=== PATIENT | female | born 1940 | race Caucasian/White ===

== ENCOUNTER 2016-07-15 17:17 | Emergency (ER) | payer OTHER ==
[~2016-07-15] VITALS: Ht 157.5 cm; Wt 64.1 kg
[~2016-07-15 17:17] MED LIST: ARNUITY ELLIP100 MCG IH; Ascorbic Acid,Ester- PO; Benadryl PO; CALTRATE 600600 MG PO; CELECOXIB200 MG PO; Coumadin,Jantoven PO; DIOVAN40 MG PO; DIOVAN80 MG PO; Dulcolax PR; EFFEXOR XR150 MG PO; EFFEXOR25 MG PO; Effexor PO; FLEXERIL10 MG PO; FLOMAX0.4 MG PO; Feosol PO; Folvite PO; GLUCAGEN1 MG IM/SC; GLUCOPHAGE XR750 MG PO; Glucophage PO; HYDROCODON-ACE1 EAC7 PO; INSULIN PUMP SCCONT; LIDODERM 5% P1 PATCH TP; LORTAB 5-325 M1 EACH PO; LOZOL1.25 MG PO; Maalox, Mylanta PO; NOLVADEX20 MG PO; NOVOLOG; NOVOLOG 10100 UNITS/ IV; OXAYDO5 MG PO; PAXIL10 MG PO; PEPCID20 MG PO; PEPCID40 MG PO; PRAVACHOL20 MG PO; PRAVASTATIN SOD10 MG PO; Paxil PO; Pepcid PO; Proventil,Ventolin H IH; SYNTHROID50 MCG PO; Senokot S,Pericolace PO; THERAGRAN1 TABLET PO; Tylenol Regular Stre PO; VENTOLIN HFA18 GM IH; Vicodin,Norco 5/325 PO; XARELTO10 MG PO; Zocor PO
[2016-07-15 18:46] LABS: CARBON DIOXIDE (BICARBONATE) 28.4 MEQ/L (20-31); MCH 30.4 PG (29.0-34.0); MCV 89.5 FL (83-99); MEAN PLAT.VOLUME 10.8 uM^3 (9.5-12.4); PLATELET COUNT 258 K/uL (156-360); RBC DIS.WIDTH-CV 12.7 % (11.8-14.6); RBC DIS.WIDTH-SD 42.1 % (39-53); RED BLOOD COUNT 4.47 M/uL (3.80-5.20); WHITE BLOOD COUNT 7.8 K/uL (4.1-10.2)
[2016-07-15 18:48] LABS: CHLORIDE 95 mEq/L (99-109); POTASSIUM 4.5 mEq/L (3.7-5.4); SODIUM 132 mEq/L (136-147)
[2016-07-15 18:51] LABS: ANION GAP 13 MEQ/L (2-14)
[2016-07-15 18:52] LABS: GLUCOSE 533 mg/dL (70-99)
[2016-07-15 18:54] LABS: GFR ESTIMATE (CALCULATED) 42 mL/min/
[2016-07-15 18:55] LABS: UREA NITROGEN (BUN) 18 mg/dL (9-23)
[2016-07-15 21:05] VITALS: BP 165/79
[2016-07-15 21:12] LABS: POINT-OF-CARE METER ID UU13113702
[2016-07-18 12:06] LABS: POINT-OF-CARE METER ID UU13113778
[2016-07-18 12:06] LABS: POINT-OF-CARE METER ID UU13113702
== END 2016-07-15 21:12 | disposition home or self-care (01) ==
LOC: EME 17:17
PROVIDERS: Emergency Medicine
DX: E11.65 Type 2 diabetes mellitus with hyperglycemia (principal); Z79.84 Long term (current) use of oral hypoglycemic drugs; Z79.4 Long term (current) use of insulin; Z96.41 Presence of insulin pump (external) (internal); Z87.891 Personal history of nicotine dependence; Z91.040 Latex allergy status; Z88.1 Allergy status to other antibiotic agents; Z88.8 Allergy status to other drugs, medicaments and biological substances; Z88.0 Allergy status to penicillin; Z88.5 Allergy status to narcotic agent; Z85.3 Personal history of malignant neoplasm of breast; Z90.10 Acquired absence of unspecified breast and nipple; J44.9 Chronic obstructive pulmonary disease, unspecified; I10 Essential (primary) hypertension
CPT/HCPCS: 80048; 81003; 82803; 82948; 85027; 99281; 99285; J7030

== ENCOUNTER 2016-07-29 15:12 | Inpatient (IN) | payer OTHER ==
[~2016-07-29] VITALS: Ht 157.5 cm; Wt 59.5 kg
[2016-07-29 16:21] LABS: CARBON DIOXIDE (BICARBONATE) 11.5 MEQ/L (20-31)
[2016-07-29 16:25] LABS: MCH 30.4 PG (29.0-34.0); MCHC 32.7 G/DL (30.0-36.0); MCV 93.2 FL (83-99); MEAN PLAT.VOLUME 10.6 uM^3 (9.5-12.4); PLATELET COUNT 291 K/uL (156-360); RBC DIS.WIDTH-CV 12.9 % (11.8-14.6); RBC DIS.WIDTH-SD 44.2 % (39-53); RED BLOOD COUNT 4.83 M/uL (3.80-5.20); WHITE BLOOD COUNT 12.3 K/uL (4.1-10.2)
[2016-07-29 16:27] LABS: CHLORIDE 94 mEq/L (99-109); SODIUM 127 mEq/L (136-147)
[2016-07-29 16:31] LABS: ANION GAP 23 MEQ/L (2-14); TOTAL BILIRUBIN 0.5 mg/dL (0.0-1.0)
[2016-07-29 16:32] LABS: GLUCOSE 796 mg/dL (70-99); POTASSIUM 6.5 mEq/L (3.7-5.4)
[2016-07-29 16:33] LABS: ALKALINE PHOSPHATASE 91 IU/L (3-129); GFR ESTIMATE (CALCULATED) 21 mL/min/
[2016-07-29 16:35] LABS: UREA NITROGEN (BUN) 41 mg/dL (9-23)
[2016-07-29 16:40] LABS: TROP-I INTERPRETATION NEGATIVE; TROPONIN-I < 0.01 ng/mL (0.0-0.30)
[2016-07-29 17:26] LABS: ADD MIUA? NO; BILIRUBIN NEGATIVE; BLOOD NEGATIVE; COLOR STRAW ((YELLOW)); GLUCOSE (STRIP) >=500; KETONES 80; LEUKOCYTES NEGATIVE; NITRITE NEGATIVE; PROTEIN (STRIP) 30; SPECIFIC GRAVITY 1.018 (1.000-1.030); UCUL ADDED? NO; UROBILINOGEN 0.2 MG/DL (0.2-1.0)
[2016-07-29 18:43] LABS: SODIUM 132 mEq/L (136-147)
[2016-07-29 18:44] LABS: CHLORIDE 104 mEq/L (99-109)
[2016-07-29 18:46] LABS: ANION GAP 17 MEQ/L (2-14)
[2016-07-29 18:50] LABS: UREA NITROGEN (BUN) 38 mg/dL (9-23)
[2016-07-29 18:57] LABS: GFR ESTIMATE (CALCULATED) 27 mL/min/
[2016-07-29 19:10] LABS: GLUCOSE 552 mg/dL (70-99)
[2016-07-29] MEDS ORDERED: LEVOTHYROXINE112 MCG PO (19:11)
[2016-07-29 20:30] LABS: CHLORIDE 106 mEq/L (99-109); POTASSIUM 4.6 mEq/L (3.7-5.4); SODIUM 134 mEq/L (136-147)
[2016-07-29 20:33] LABS: ANION GAP 16 MEQ/L (2-14)
[2016-07-29 20:36] LABS: GFR ESTIMATE (CALCULATED) 29 mL/min/; UREA NITROGEN (BUN) 33 mg/dL (9-23)
[2016-07-29 20:45] LABS: GLUCOSE 500 mg/dL (70-99)
[2016-07-29 21:31] LABS: POINT-OF-CARE METER ID UU14100415
[2016-07-29 22:36] LABS: POINT-OF-CARE METER ID UU14100415
[2016-07-29 22:48] VITALS: BP 148/52
[2016-07-29 23:12] VITALS: BP 148/52
[2016-07-29 23:37] LABS: POINT-OF-CARE METER ID UU13113748
[2016-07-30] VITALS (16 sets, daily range): BP systolic 119–171; BP diastolic 50–77
[2016-07-30 00:05] LABS: METH RESISTANT S AUREUS PCR NEGATIVE (NEGATIVE)
[2016-07-30 00:13] LABS: PROBE CHECK PASS; SPECIMEN PROCESSING CONTROL PASS
[2016-07-30 00:41] LABS: POINT-OF-CARE METER ID UU13113748
[2016-07-30 00:53] LABS: CHLORIDE 110 mEq/L (99-109); POTASSIUM 3.9 mEq/L (3.7-5.4); SODIUM 137 mEq/L (136-147)
[2016-07-30 00:55] LABS: GLUCOSE 248 mg/dL (70-99)
[2016-07-30 00:56] LABS: ANION GAP 9 MEQ/L (2-14)
[2016-07-30 00:58] LABS: GFR ESTIMATE (CALCULATED) 39 mL/min/
[2016-07-30 00:59] LABS: UREA NITROGEN (BUN) 34 mg/dL (9-23)
[2016-07-30 01:43] LABS: POINT-OF-CARE METER ID UU13113731
[2016-07-30 03:43] LABS: POINT-OF-CARE METER ID UU13113731
[2016-07-30 06:28] LABS: CHLORIDE 109 MEQ/L (99-109); GFR ESTIMATE (CALCULATED) 51 mL/min/; GLUCOSE 128 mg/dL (70-99); POTASSIUM 4.5 MEQ/L (3.7-5.4); SODIUM 137 MEQ/L (136-147); UREA NITROGEN (BUN) 28 mg/dL (9-23)
[2016-07-30 06:29] LABS: ANION GAP 8 MEQ/L (2-14)
[2016-07-30 07:43] LABS: SAMPLE HEMOLYSIS CHECK 0; SAMPLE ICTERIC CHECK 0; SAMPLE LIPEMIA CHECK 0
[2016-07-30 08:55] LABS: ANION GAP 7 MEQ/L (2-14); CHLORIDE 110 MEQ/L (99-109); GFR ESTIMATE (CALCULATED) 51 mL/min/; GLUCOSE 172 mg/dL (70-99); POTASSIUM 4.1 MEQ/L (3.7-5.4); SAMPLE HEMOLYSIS CHECK 0; SAMPLE ICTERIC CHECK 0; SAMPLE LIPEMIA CHECK 0; SODIUM 137 MEQ/L (136-147); UREA NITROGEN (BUN) 26 mg/dL (9-23)
[2016-07-30 13:09] LABS: ANION GAP 9 MEQ/L (2-14); CHLORIDE 111 MEQ/L (99-109); GFR ESTIMATE (CALCULATED) > 59 mL/min/; GLUCOSE 190 mg/dL (70-99); POTASSIUM 4.7 MEQ/L (3.7-5.4); SAMPLE HEMOLYSIS CHECK 0; SAMPLE ICTERIC CHECK 0; SAMPLE LIPEMIA CHECK 0; SODIUM 135 MEQ/L (136-147); UREA NITROGEN (BUN) 20 mg/dL (9-23)
[2016-07-30 16:36] LABS: ANION GAP 6 MEQ/L (2-14); CHLORIDE 111 MEQ/L (99-109); POTASSIUM 4.8 MEQ/L (3.7-5.4); SAMPLE HEMOLYSIS CHECK 0; SAMPLE ICTERIC CHECK 0; SAMPLE LIPEMIA CHECK 0; SODIUM 136 MEQ/L (136-147)
[2016-07-30 16:41] LABS: GFR ESTIMATE (CALCULATED) > 59 mL/min/; GLUCOSE 175 mg/dL (70-99); UREA NITROGEN (BUN) 17 mg/dL (9-23)
[2016-07-30 17:59] LABS: POINT-OF-CARE METER ID UU13113731
[2016-07-31 00:14] VITALS: BP 125/75
[2016-07-31 04:41] VITALS: BP 133/67
[2016-07-31 06:54] LABS: HEMATOCRIT 35.8 % (36.0-46.0); MCH 30.5 PG (29.0-34.0); MCHC 33.5 G/DL (30.0-36.0); MCV 90.9 FL (83-99); RBC DIS.WIDTH-CV 13.2 % (11.8-14.6); RBC DIS.WIDTH-SD 44.3 % (39-53); RED BLOOD COUNT 3.94 M/uL (3.80-5.20); WHITE BLOOD COUNT 6.6 K/uL (4.1-10.2)
[2016-07-31 07:07] LABS: ANION GAP 8 MEQ/L (2-14); CHLORIDE 108 MEQ/L (99-109); GFR ESTIMATE (CALCULATED) > 59 mL/min/; GLUCOSE 163 mg/dL (70-99); MAGNESIUM 1.6 mg/dl (1.3-2.7); POTASSIUM 5.4 MEQ/L (3.7-5.4); SAMPLE HEMOLYSIS CHECK 0; SAMPLE ICTERIC CHECK 0; SAMPLE LIPEMIA CHECK 0; SODIUM 138 MEQ/L (136-147); UREA NITROGEN (BUN) 10 mg/dL (9-23)
[2016-07-31 07:09] LABS: MEAN PLAT.VOLUME 10.7 uM^3 (9.5-12.4); PLAT.SUFFICIENCY ADEQUATE
[2016-07-31 07:15] VITALS: BP 154/74
[2016-07-31 07:28] LABS: PLATELET COUNT 196 K/uL (156-360)
[2016-07-31 10:50] VITALS: BP 141/67
[2016-07-31 10:54] LABS: POINT-OF-CARE METER ID UU14149397
[2016-07-31 18:08] LABS: POINT-OF-CARE METER ID UU14188577
[2016-07-31 21:59] LABS: POINT-OF-CARE METER ID UU14100415
[2016-07-31 21:59] LABS: POINT-OF-CARE METER ID UU14100415
[2016-07-31 21:59] LABS: POINT-OF-CARE METER ID UU14100415
[2016-07-31 22:07] LABS: POINT-OF-CARE METER ID UU14188577
[2016-07-31] MEDS ORDERED: LUMIGAN 0.50 DROP/22 LEFT EYE (22:41)
[2016-08-01 00:24] VITALS: BP 118/72
[2016-08-01 02:22] LABS: POINT-OF-CARE METER ID UU14149397
[2016-08-01 03:16] LABS: POINT-OF-CARE METER ID UU14188577
[2016-08-01 06:09] LABS: POINT-OF-CARE METER ID UU14188577
[2016-08-01 06:34] LABS: POINT-OF-CARE METER ID UU14188577
[2016-08-01 08:27] VITALS: BP 165/71
[2016-08-01 10:03] LABS: POINT-OF-CARE METER ID UU14188577
[2016-08-01 10:55] LABS: POINT-OF-CARE METER ID UU14149397
[2016-08-01 11:33] LABS: POINT-OF-CARE METER ID UU14149397
== END 2016-08-01 13:02 | disposition home or self-care (01) | DRG 638 ==
LOC: EME 15:12 → 3EAST 20:53 → EDOF 20:53 → 4WEST 20:53 → 3EAST 07-30 18:08
PROVIDERS: Emergency Medicine; Internal Medicine; Internal Medicine Critical Care Medicine; Internal Medicine Pulmonary Disease; Student in an Organized Health Care Education/Training Program
DX: E10.10 Type 1 diabetes mellitus with ketoacidosis without coma (principal); N17.9 Acute kidney failure, unspecified; J44.9 Chronic obstructive pulmonary disease, unspecified; E83.39 Other disorders of phosphorus metabolism; E87.5 Hyperkalemia; Z96.641 Presence of right artificial hip joint; D72.829 Elevated white blood cell count, unspecified; E78.00 Pure hypercholesterolemia, unspecified; I10 Essential (primary) hypertension; F32.9 Major depressive disorder, single episode, unspecified; Z96.41 Presence of insulin pump (external) (internal); R63.1 Polydipsia; Z79.4 Long term (current) use of insulin; Z87.891 Personal history of nicotine dependence; Z85.3 Personal history of malignant neoplasm of breast; Z83.3 Family history of diabetes mellitus; Z88.0 Allergy status to penicillin; Z91.040 Latex allergy status; Z88.6 Allergy status to analgesic agent
CPT/HCPCS: 36415; 71010; 80048; 80048 91; 80053; 81003; 82010; 82803; 82948; 83036; 83735; 84100; 84484; 85027; 87641; 93005; 99281; 99285; J1815; J7030; J7050

== ENCOUNTER 2016-11-21 00:36 | Observation (INO) | payer OTHER ==
[~2016-11-21] VITALS: Ht 157.5 cm; Wt 64.0 kg
[2016-11-21] VITALS (7 sets, daily range): BP systolic 128–182; BP diastolic 57–90
[~2016-11-21 00:36] MED LIST changes: +LEVOTHYROXINE112 MCG PO; +LUMIGAN 0.50 DROP/22 LEFT EYE
[2016-11-21 01:14] LABS: HEMATOCRIT 39.6 % (36.0-46.0); MCH 30.5 PG (29.0-34.0); MCHC 34.3 G/DL (30.0-36.0); MCV 88.8 FL (83-99); MEAN PLAT.VOLUME 10.7 uM^3 (9.5-12.4); PLATELET COUNT 242 K/uL (156-360); RBC DIS.WIDTH-CV 12.7 % (11.8-14.6); RBC DIS.WIDTH-SD 41.5 % (39-53); RED BLOOD COUNT 4.46 M/uL (3.80-5.20); WHITE BLOOD COUNT 7.4 K/uL (4.1-10.2)
[2016-11-21 01:20] LABS: CARBON DIOXIDE (BICARBONATE) 29.9 MEQ/L (20-31)
[2016-11-21 01:22] LABS: CHLORIDE 95 mEq/L (99-109); POTASSIUM 4.3 mEq/L (3.7-5.4); SODIUM 131 mEq/L (136-147)
[2016-11-21 01:26] LABS: ANION GAP 13 MEQ/L (2-14); TOTAL BILIRUBIN 0.4 mg/dL (0.0-1.0)
[2016-11-21 01:28] LABS: ALKALINE PHOSPHATASE 100 IU/L (3-129); GFR ESTIMATE (CALCULATED) 39 mL/min/
[2016-11-21 01:29] LABS: UREA NITROGEN (BUN) 13 mg/dL (9-23)
[2016-11-21 01:30] LABS: DIRECT BILIRUBIN 0.2 mg/dL (0.0-0.3)
[2016-11-21 01:32] LABS: LIPASE 11 U/L (1.0-51.0)
[2016-11-21 01:45] LABS: GLUCOSE 746 mg/dL (70-99)
[2016-11-21 03:14] LABS: ADD MIUA? NO; BILIRUBIN NEGATIVE; BLOOD NEGATIVE; COLOR STRAW ((YELLOW)); GLUCOSE (STRIP) >=500; KETONES NEGATIVE; LEUKOCYTES NEGATIVE; NITRITE NEGATIVE; PROTEIN (STRIP) NEGATIVE; SPECIFIC GRAVITY 1.023 (1.000-1.030); UCUL ADDED? NO; UROBILINOGEN 0.2 MG/DL (0.2-1.0)
[2016-11-21 03:21] LABS: SAMPLE HEMOLYSIS CHECK 0; SAMPLE ICTERIC CHECK 0; SAMPLE LIPEMIA CHECK 0
[2016-11-21 03:23] LABS: AMPHETAMINE NEGATIVE (500 ng/mL); BARBITURATES NEGATIVE (200 ng/mL); BENZODIAZEPINES NEGATIVE (150 ng/mL); COCAINE NEGATIVE (150 ng/mL); INTERNAL CONTROLS VALID? YES; METHADONE NEGATIVE (200 ng/mL); METHAMPHETAMINE NEGATIVE (500 ng/mL); OPIATES (MORPHINE) NEGATIVE (100 ng/mL); OXYCODONE NEGATIVE (100 ng/mL); PHENCYCLIDINE NEGATIVE (25 ng/mL); PROPOXYPHENE NEGATIVE (300 ng/mL); THC CANNABINOIDS NEGATIVE (50 ng/mL); TRICYCLIC ANTIDEPRESSANTS NEGATIVE (300 ng/mL)
[2016-11-21 04:49] LABS: TROP-I INTERPRETATION NEGATIVE; TROPONIN-I < 0.01 ng/mL (0.0-0.30)
[2016-11-21 05:22] LABS: POINT-OF-CARE METER ID UU13113725
[2016-11-21 06:20] LABS: ANION GAP 5 MEQ/L (2-14); CHLORIDE 101 MEQ/L (99-109); GFR ESTIMATE (CALCULATED) > 59 mL/min/; GLUCOSE 400 mg/dL (70-99); POTASSIUM 3.8 MEQ/L (3.7-5.4); SAMPLE HEMOLYSIS CHECK 0; SAMPLE ICTERIC CHECK 0; SAMPLE LIPEMIA CHECK 0; SODIUM 135 MEQ/L (136-147); UREA NITROGEN (BUN) 11 mg/dL (9-23)
[2016-11-21 08:41] LABS: Estimated Average Glucose 229 mg/dL (70-123); HEMOGLOBIN A1c (GLYCOHEMOGLOB) 9.6 % HGB (Below 5.7)
[2016-11-21 11:49] LABS: POINT-OF-CARE METER ID UU13113725
[2016-11-21] MEDS ORDERED: PAXIL10 MG PO (12:47)
[2016-11-21 16:19] LABS: POINT-OF-CARE METER ID UU13113725
[2016-11-21 21:38] LABS: POINT-OF-CARE METER ID UU13113725
[2016-11-21 23:22] LABS: POINT-OF-CARE METER ID UU13113725
[2016-11-22 01:20] VITALS: BP 177/75
[2016-11-22 03:09] VITALS: BP 170/74
[2016-11-22 05:21] VITALS: BP 154/70
[2016-11-22 06:01] LABS: POINT-OF-CARE METER ID UU13113774
[2016-11-22 06:35] LABS: EOSINOPHIL (%) 0.1 % (0-5); HEMATOCRIT 39.8 % (36.0-46.0); IMMATURE GRANULOCYTE (%) 0.3 % (0.0-0.7); INSTRUMENT ABS NEUTROPHIL CT 7.8 K/uL; LYMPHOCYTE COUNT 1.8 K/uL (1.0-2.8); MCH 29.8 PG (29.0-34.0); MCHC 33.2 G/DL (30.0-36.0); MCV 89.8 FL (83-99); MEAN PLAT.VOLUME 10.9 uM^3 (9.5-12.4); MONOCYTE (%) 5.8 % (3-12); MONOCYTE COUNT 0.6 K/uL (0-0.8); NEUTROPHIL (%) 76.2 % (45-76); NEUTROPHIL COUNT 7.8 K/uL (1.8-6.4); PLATELET COUNT 268 K/uL (156-360); RBC DIS.WIDTH-CV 12.8 % (11.8-14.6); RBC DIS.WIDTH-SD 42.3 % (39-53); RED BLOOD COUNT 4.43 M/uL (3.80-5.20); WHITE BLOOD COUNT 10.2 K/uL (4.1-10.2)
[2016-11-22 07:02] LABS: ALKALINE PHOSPHATASE 80 IU/L (3-129); ANION GAP 9 MEQ/L (2-14); CHLORIDE 104 MEQ/L (99-109); GFR ESTIMATE (CALCULATED) > 59 mL/min/; POTASSIUM 4.3 MEQ/L (3.7-5.4); SAMPLE HEMOLYSIS CHECK 0; SAMPLE ICTERIC CHECK 0; SAMPLE LIPEMIA CHECK 0; SODIUM 141 MEQ/L (136-147); TOTAL BILIRUBIN 0.4 MG/DL (0.0-1.0); UREA NITROGEN (BUN) 11 mg/dL (9-23)
[2016-11-22 07:08] LABS: GLUCOSE 64 mg/dL (70-99)
[2016-11-22 07:40] VITALS: BP 137/70
[2016-11-22 11:14] LABS: POINT-OF-CARE METER ID UU13113725
[2016-11-22 11:51] VITALS: BP 150/70
[2016-11-22] MEDS ORDERED: NOVOLOG PE100 UNITS/ SC (13:41)
[2016-11-22] MEDS ORDERED: LEVEMIR FL100 UNIT/1 SC (13:41)
[2016-11-22 16:01] VITALS: BP 100/60
[2016-11-22] MEDS ORDERED: LEVEMIR100 UNIT/2 SC (16:28)
[2016-11-22 16:57] LABS: POINT-OF-CARE METER ID UU13113774
== END 2016-11-22 16:57 | disposition home or self-care (01) ==
LOC: EME 00:36 → EDOF 03:32 → 5EAST 03:32 → EDOF 03:32 → ENRESERV 03:46 → CANRESERV 03:46 → ENRESERV 03:59 → 5EAST 04:43
PROVIDERS: Emergency Medicine; Hospitalist
DX: E10.65 Type 1 diabetes mellitus with hyperglycemia (principal); T85.694A Other mechanical complication of insulin pump, initial encounter; Y74.2 Prosthetic and other implants, materials and accessory general hospital and personal-use devices associated with adverse incidents; Z96.41 Presence of insulin pump (external) (internal); Z91.14 Patient's other noncompliance with medication regimen; N17.9 Acute kidney failure, unspecified; E86.0 Dehydration; J44.1 Chronic obstructive pulmonary disease with (acute) exacerbation; Z85.3 Personal history of malignant neoplasm of breast; Z92.21 Personal history of antineoplastic chemotherapy; Z92.3 Personal history of irradiation; E10.51 Type 1 diabetes mellitus with diabetic peripheral angiopathy without gangrene; K44.9 Diaphragmatic hernia without obstruction or gangrene; I10 Essential (primary) hypertension; Z87.11 Personal history of peptic ulcer disease; E78.5 Hyperlipidemia, unspecified; Z90.49 Acquired absence of other specified parts of digestive tract; Z90.710 Acquired absence of both cervix and uterus; F17.210 Nicotine dependence, cigarettes, uncomplicated; Z96.641 Presence of right artificial hip joint; Z96.651 Presence of right artificial knee joint; Z80.0 Family history of malignant neoplasm of digestive organs; Z83.3 Family history of diabetes mellitus; Z82.49 Family history of ischemic heart disease and other diseases of the circulatory system; Z80.3 Family history of malignant neoplasm of breast; Z88.0 Allergy status to penicillin; Z88.1 Allergy status to other antibiotic agents; Z88.8 Allergy status to other drugs, medicaments and biological substances; Z88.5 Allergy status to narcotic agent; Z79.4 Long term (current) use of insulin
CPT/HCPCS: 71010; 80048 91; 80053; 81003; 82010; 82248; 82803; 82948; 83036; 83605; 83690; 84484; 85025; 85027; 87040; 87086; 93005; 94640; 94640 76; 99202; 99281; 99285; G0378; G8978 GP CH; G8979 GP CH; G8980 GP CH; G8987 GO CH; G8988 GO CH; G8989 GO CH; J0360; J1644; J1815; J7030

== ENCOUNTER 2017-03-10 00:20 | Emergency (ER) | payer OTHER ==
[~2017-03-10] VITALS: Ht 157.5 cm; Wt 61.4 kg
[~2017-03-10 00:20] MED LIST changes: +LEVEMIR FL100 UNIT/1 SC; +LEVEMIR100 UNIT/2 SC; +NOVOLOG PE100 UNITS/ SC
[2017-03-10] MEDS ORDERED: NORCO 5/3251 TABLET PO (04:24)
[2017-03-10 04:29] VITALS: BP 157/93
== END 2017-03-10 04:43 | disposition home or self-care (01) ==
LOC: EME 00:20
PROC: 2W3RX1Z Immobilization of Left Lower Leg using Splint (ICD-10-PCS; principal; 2017-03-10)
DX: S93.402A Sprain of unspecified ligament of left ankle, initial encounter (principal); E11.9 Type 2 diabetes mellitus without complications; F17.200 Nicotine dependence, unspecified, uncomplicated; W01.0XXA Fall on same level from slipping, tripping and stumbling without subsequent striking against object, initial encounter; Z88.1 Allergy status to other antibiotic agents; Z88.5 Allergy status to narcotic agent; Z88.0 Allergy status to penicillin; Z88.8 Allergy status to other drugs, medicaments and biological substances
CPT/HCPCS: 73610; 99281; 99284

== ENCOUNTER 2017-03-23 18:21 | Emergency (ER) | payer OTHER ==
[~2017-03-23] VITALS: Ht 157.5 cm; Wt 58.8 kg
[~2017-03-23 18:21] MED LIST changes: +DIOVAN160 MG PO; -DIOVAN80 MG PO; -LEVOTHYROXINE112 MCG PO; +NORCO 5/3251 TABLET PO; +SYNTHROID125 MCG PO
[2017-03-23 19:00] LABS: BASOPHIL (%) 0.3 % (0-1); EOSINOPHIL (%) 0 % (0-5); HEMATOCRIT 43.2 % (36.0-46.0); HEMOGLOBIN 14.2 G/DL (11.9-15.5); IMMATURE GRANULOCYTE (%) 0.6 % (0.0-0.7); LYMPHOCYTE (%) 8.9 % (15-42); LYMPHOCYTE COUNT 1.3 K/uL (1.0-2.8); MCH 30.4 PG (29.0-34.0); MCHC 32.9 G/DL (30.0-36.0); MCV 92.5 FL (83-99); MONOCYTE COUNT 0.4 K/uL (0-0.8); NEUTROPHIL (%) 87.2 % (45-76); NEUTROPHIL COUNT 12.7 K/uL (1.8-6.4); PLATELET COUNT 293 K/uL (156-360); RBC DIS.WIDTH-CV 12.6 % (11.8-14.6); RBC DIS.WIDTH-SD 43.1 % (39-53); RED BLOOD COUNT 4.67 M/uL (3.80-5.20); WHITE BLOOD COUNT 14.5 K/uL (4.1-10.2)
[2017-03-23 19:12] LABS: ALBUMIN 4.1 g/dL (3.2-4.8); CHLORIDE 98 mEq/L (99-109); POTASSIUM 5.7 mEq/L (3.7-5.4); SODIUM 132 mEq/L (136-147)
[2017-03-23 19:13] LABS: MAGNESIUM 1.8 mg/dL (1.3-2.7)
[2017-03-23 19:17] LABS: TOTAL BILIRUBIN 0.4 mg/dL (0.0-1.0)
[2017-03-23 19:18] LABS: ALKALINE PHOSPHATASE 131 IU/L (3-129)
[2017-03-23 19:19] LABS: GFR ESTIMATE (CALCULATED) 26 mL/min/
[2017-03-23 19:20] LABS: AST (GOT) 15 IU/L (2-34); UREA NITROGEN (BUN) 30 mg/dL (9-23)
[2017-03-23 19:21] LABS: ALT (GPT) 12 IU/L (3-49)
[2017-03-23 19:22] LABS: LIPASE 6 U/L (1.0-51.0)
[2017-03-23 19:23] LABS: GLUCOSE 550 mg/dL (70-99); TROP-I INTERPRETATION NEGATIVE; TROPONIN-I < 0.01 ng/mL (0.0-0.30)
[2017-03-23 22:07] LABS: APPEARANCE CLEAR ((CLEAR)); BILIRUBIN NEGATIVE; BLOOD NEGATIVE; COLOR STRAW ((YELLOW)); GLUCOSE (STRIP) >=500; KETONES 80; LEUKOCYTES NEGATIVE; NITRITE NEGATIVE; PROTEIN (STRIP) 30; UCUL ADDED? NO; UROBILINOGEN 0.2 MG/DL (0.2-1.0)
[2017-03-23] MEDS ORDERED: NOVOLOG PE100 UNITS/ SC (22:10)
[2017-03-23] MEDS ORDERED: TESSALON200 MG PO (22:15)
[2017-03-23] MEDS ORDERED: ALBUTEROL2.5 MG/3 M IH (22:16)
[2017-03-23 23:41] LABS: CARBON DIOXIDE (BICARBONATE) 9.4 MEQ/L (20-31)
[2017-03-23 23:47] LABS: CHLORIDE 100 mEq/L (99-109); POTASSIUM 4.5 mEq/L (3.7-5.4); SODIUM 133 mEq/L (136-147)
[2017-03-23 23:52] LABS: CREATININE 2.3 mg/dL (0.6-1.3); GFR ESTIMATE (CALCULATED) 22 mL/min/
[2017-03-23 23:53] LABS: UREA NITROGEN (BUN) 33 mg/dL (9-23)
[2017-03-24 00:05] LABS: GLUCOSE 404 mg/dL (70-99)
[2017-03-24 03:13] VITALS: BP 125/49
== END 2017-03-24 03:09 | disposition short-term general hospital (02) ==
LOC: EME 18:21
PROVIDERS: Emergency Medicine
DX: E11.10 Type 2 diabetes mellitus with ketoacidosis without coma (principal); Z79.4 Long term (current) use of insulin; Z96.41 Presence of insulin pump (external) (internal); R11.2 Nausea with vomiting, unspecified; R06.82 Tachypnea, not elsewhere classified; J44.9 Chronic obstructive pulmonary disease, unspecified; I10 Essential (primary) hypertension; Z85.3 Personal history of malignant neoplasm of breast; Z90.11 Acquired absence of right breast and nipple; F17.200 Nicotine dependence, unspecified, uncomplicated
CPT/HCPCS: 80048 91; 80053; 81003; 82010; 82803; 82948; 83605; 83690; 83735; 84484; 85025; 93005; 99281; 99285; J1200; J1815; J2405; J2765; J7030; J7040; J7050

== ENCOUNTER 2017-05-08 10:16 | Inpatient (IN) | payer OTHER ==
[~2017-05-08] VITALS: Ht 157.5 cm; Wt 56.8 kg
[~2017-05-08 10:16] MED LIST changes: +ALBUTEROL2.5 MG/3 M IH; +TESSALON200 MG PO
[2017-05-08 13:35] LABS: HEMATOCRIT 37.4 % (36.0-46.0); HEMOGLOBIN 12.8 G/DL (11.9-15.5); MCH 31.2 PG (29.0-34.0); MCHC 34.2 G/DL (30.0-36.0); MCV 91.2 FL (83-99); PLATELET COUNT 263 K/uL (156-360); RBC DIS.WIDTH-CV 12.7 % (11.8-14.6); RBC DIS.WIDTH-SD 42.3 % (39-53); WHITE BLOOD COUNT 18.6 K/uL (4.1-10.2)
[2017-05-08 13:47] LABS: CHLORIDE 99 mEq/L (99-109); POTASSIUM 4.2 mEq/L (3.7-5.4); SODIUM 132 mEq/L (136-147)
[2017-05-08 13:48] LABS: GLUCOSE 379 mg/dL (70-99)
[2017-05-08 13:52] LABS: CREATININE 1.5 mg/dL (0.6-1.3); GFR ESTIMATE (CALCULATED) 36 mL/min/
[2017-05-08 13:53] LABS: UREA NITROGEN (BUN) 27 mg/dL (9-23)
[2017-05-08 14:04] LABS: APPEARANCE SL.HAZY ((CLEAR)); BILIRUBIN NEGATIVE; BLOOD NEGATIVE; COLOR YELLOW ((YELLOW)); GLUCOSE (STRIP) >=500; KETONES 20; LEUKOCYTES LARGE; NITRITE NEGATIVE; PROTEIN (STRIP) 30; SPECIFIC GRAVITY 1.027 (1.000-1.030); UROBILINOGEN 0.2 MG/DL (0.2-1.0)
[2017-05-08 14:23] LABS: BACTERIA RARE /HPF; EPITHELIAL CELLS RARE /HPF; HYALINE CASTS 0-5 /LPF; MUCUS TRACE /LPF; UCUL ADDED? NO; WHITE BLOOD CELLS 0-5 /HPF (0-5)
[2017-05-08] MEDS ORDERED: HUMALOG100 UNIT/2 SC (15:39)
[2017-05-08] MEDS ORDERED: LEVOTHYROXINE125 MCG PO (15:40)
[2017-05-08] MEDS ORDERED: LANTUS 3 M100 UNITS1 SC (15:42)
[2017-05-08] MEDS ORDERED: INDAPAMIDE1.25 MG PO (15:42)
[2017-05-08] MEDS ORDERED: FAMOTIDINE20 MG PO (15:43)
[2017-05-08] MEDS ORDERED: VENLAFAXINE HC150 M1 PO (15:44)
[2017-05-08] MEDS ORDERED: VALSARTAN160 MG PO (15:45)
[2017-05-08 20:40] VITALS: BP 123/58
[2017-05-08 23:56] VITALS: BP 111/46
[2017-05-09 06:45] LABS: HEMATOCRIT 34.5 % (36.0-46.0); HEMOGLOBIN 11.4 G/DL (11.9-15.5); MCH 29.8 PG (29.0-34.0); MCV 90.3 FL (83-99); PLATELET COUNT 226 K/uL (156-360); RBC DIS.WIDTH-CV 12.7 % (11.8-14.6); RED BLOOD COUNT 3.82 M/uL (3.80-5.20); WHITE BLOOD COUNT 12.3 K/uL (4.1-10.2)
[2017-05-09 07:26] LABS: CHLORIDE 106 MEQ/L (99-109); POTASSIUM 3.6 MEQ/L (3.7-5.4); UREA NITROGEN (BUN) 13 mg/dL (9-23)
[2017-05-09 07:27] LABS: CREATININE 0.8 MG/DL (0.6-1.3); GFR ESTIMATE (CALCULATED) > 59 mL/min/; GLUCOSE 45 mg/dL (70-99); SODIUM 139 MEQ/L (136-147)
[2017-05-09 07:29] VITALS: BP 108/61
[2017-05-09 12:06] VITALS: BP 129/68
[2017-05-09 16:39] VITALS: BP 115/57
[2017-05-09 19:49] VITALS: BP 124/61
[2017-05-09 23:47] VITALS: BP 132/72
[2017-05-10 03:28] VITALS: BP 113/68
[2017-05-10 06:16] LABS: BASOPHIL (%) 0.5 % (0-1); EOSINOPHIL (%) 1.8 % (0-5); EOSINOPHIL COUNT 0.2 K/uL (0-0.3); HEMATOCRIT 34.5 % (36.0-46.0); HEMOGLOBIN 11.4 G/DL (11.9-15.5); IMMATURE GRANULOCYTE (%) 0.2 % (0.0-0.7); LYMPHOCYTE (%) 25.3 % (15-42); LYMPHOCYTE COUNT 2.1 K/uL (1.0-2.8); MCH 29.8 PG (29.0-34.0); MCV 90.3 FL (83-99); MONOCYTE (%) 9.5 % (3-12); MONOCYTE COUNT 0.8 K/uL (0-0.8); NEUTROPHIL (%) 62.7 % (45-76); NEUTROPHIL COUNT 5.2 K/uL (1.8-6.4); PLATELET COUNT 212 K/uL (156-360); RBC DIS.WIDTH-CV 12.8 % (11.8-14.6); RBC DIS.WIDTH-SD 42.5 % (39-53); RED BLOOD COUNT 3.82 M/uL (3.80-5.20); WHITE BLOOD COUNT 8.3 K/uL (4.1-10.2)
[2017-05-10 06:52] LABS: CHLORIDE 102 MEQ/L (99-109); CREATININE 0.8 MG/DL (0.6-1.3); GFR ESTIMATE (CALCULATED) > 59 mL/min/; POTASSIUM 4.2 MEQ/L (3.7-5.4); SODIUM 136 MEQ/L (136-147); UREA NITROGEN (BUN) 10 mg/dL (9-23)
[2017-05-10 06:57] LABS: GLUCOSE 150 mg/dL (70-99)
[2017-05-10 07:18] VITALS: BP 139/68
[2017-05-10] MEDS ORDERED: LEVOFLOXACIN750 MG PO (10:39)
[2017-05-10] MEDS ORDERED: PROVENTIL HFA6.7 GM IH (10:42)
[2017-05-10 11:47] VITALS: BP 103/60
[2017-05-10 14:10] LABS: CHLORIDE 95 MEQ/L (99-109); CREATININE 0.8 MG/DL (0.6-1.3); GFR ESTIMATE (CALCULATED) > 59 mL/min/; UREA NITROGEN (BUN) 17 mg/dL (9-23)
[2017-05-10 14:11] LABS: GLUCOSE 512 mg/dL (70-99); SODIUM 129 MEQ/L (136-147)
[2017-05-10 16:13] VITALS: BP 118/58
== END 2017-05-10 17:36 | disposition home or self-care (01) | DRG 190 ==
LOC: EME 10:16 → EDOF 15:16 → 5SOUTH 15:16 → ENRESERV 16:14 → 5SOUTH 19:38 → ENPENDDIS 05-10 12:13 → 5SOUTH 05-10 17:36
PROVIDERS: Internal Medicine; Physician Assistant
DX: J44.0 Chronic obstructive pulmonary disease with (acute) lower respiratory infection (principal); J18.9 Pneumonia, unspecified organism; N39.0 Urinary tract infection, site not specified; J44.1 Chronic obstructive pulmonary disease with (acute) exacerbation; E10.65 Type 1 diabetes mellitus with hyperglycemia; E10.649 Type 1 diabetes mellitus with hypoglycemia without coma; E78.5 Hyperlipidemia, unspecified; I10 Essential (primary) hypertension; E10.51 Type 1 diabetes mellitus with diabetic peripheral angiopathy without gangrene; K44.9 Diaphragmatic hernia without obstruction or gangrene; F17.200 Nicotine dependence, unspecified, uncomplicated; E89.0 Postprocedural hypothyroidism; Z96.641 Presence of right artificial hip joint; Z96.651 Presence of right artificial knee joint; Z79.4 Long term (current) use of insulin; Z85.3 Personal history of malignant neoplasm of breast; Z87.11 Personal history of peptic ulcer disease; Z91.040 Latex allergy status; Z88.1 Allergy status to other antibiotic agents; Z88.0 Allergy status to penicillin
CPT/HCPCS: 71046; 80048; 80048 91; 81003; 82010; 82948; 83036; 85025; 85027; 87040; 87086; 87449; 87502; 94640; 94640 76; 94760; 99202; 99281; 99285; J1650; J1815; J1956; J7030

== ENCOUNTER 2017-06-16 14:40 | Inpatient (IN) | payer OTHER ==
[~2017-06-16] VITALS: Ht 157.5 cm; Wt 57.1 kg
[~2017-06-16 14:40] MED LIST changes: +FAMOTIDINE20 MG PO; +HUMALOG100 UNIT/2 SC; +INDAPAMIDE1.25 MG PO; +LANTUS 3 M100 UNITS1 SC; +LEVOFLOXACIN750 MG PO; +LEVOTHYROXINE125 MCG PO; +PROVENTIL HFA6.7 GM IH; +VALSARTAN160 MG PO; +VENLAFAXINE HC150 M1 PO
[2017-06-16 15:19] LABS: BASOPHIL (%) 0.4 % (0-1); BASOPHIL COUNT 0.1 K/uL (0-0.1); EOSINOPHIL (%) 0.6 % (0-5); EOSINOPHIL COUNT 0.1 K/uL (0-0.3); HEMATOCRIT 44.4 % (36.0-46.0); HEMOGLOBIN 15.3 G/DL (11.9-15.5); IMMATURE GRANULOCYTE (%) 0.3 % (0.0-0.7); LYMPHOCYTE (%) 18.8 % (15-42); LYMPHOCYTE COUNT 2.2 K/uL (1.0-2.8); MCH 30.6 PG (29.0-34.0); MCHC 34.5 G/DL (30.0-36.0); MCV 88.8 FL (83-99); MONOCYTE (%) 6.1 % (3-12); MONOCYTE COUNT 0.7 K/uL (0-0.8); NEUTROPHIL (%) 73.8 % (45-76); NEUTROPHIL COUNT 8.7 K/uL (1.8-6.4); PLATELET COUNT 279 K/uL (156-360); RBC DIS.WIDTH-CV 12.5 % (11.8-14.6); RBC DIS.WIDTH-SD 41.1 % (39-53); WHITE BLOOD COUNT 11.8 K/uL (4.1-10.2)
[2017-06-16 15:28] LABS: ALBUMIN 4.2 g/dL (3.2-4.8); CHLORIDE 94 mEq/L (99-109); POTASSIUM 4.6 mEq/L (3.7-5.4); SODIUM 133 mEq/L (136-147)
[2017-06-16 15:31] LABS: TOTAL PROTEIN 7.5 g/dL (6.4-8.3)
[2017-06-16 15:32] LABS: GLUCOSE 483 mg/dL (70-99); TOTAL BILIRUBIN 0.8 mg/dL (0.0-1.0)
[2017-06-16 15:34] LABS: ALKALINE PHOSPHATASE 133 IU/L (3-129); CREATININE 1.6 mg/dL (0.6-1.3); GFR ESTIMATE (CALCULATED) 33 mL/min/
[2017-06-16 15:35] LABS: UREA NITROGEN (BUN) 31 mg/dL (9-23)
[2017-06-16 15:36] LABS: AST (GOT) 15 IU/L (2-34)
[2017-06-16 15:37] LABS: ALT (GPT) 13 IU/L (3-49)
[2017-06-16 15:43] LABS: TROP-I INTERPRETATION NEGATIVE; TROPONIN-I < 0.01 ng/mL (0.0-0.30)
[2017-06-16 16:30] LABS: THYROTROPIN (TSH) 0.85 MIU/L (0.4-5.5)
[2017-06-16 20:26] LABS: TROP-I INTERPRETATION NEGATIVE; TROPONIN-I < 0.01 ng/mL (0.0-0.30)
[2017-06-16] MEDS ORDERED: PAXIL10 MG PO (21:12)
[2017-06-16 22:01] VITALS: BP 130/58
[2017-06-16 22:17] VITALS: BP 124/58
[2017-06-16 23:58] VITALS: BP 139/65
[2017-06-17 03:01] LABS: GLUCOSE 476 mg/dL (70-99)
[2017-06-17 04:09] VITALS: BP 137/62
[2017-06-17 06:34] LABS: HEMATOCRIT 36.4 % (36.0-46.0); MCH 29.9 PG (29.0-34.0); MCHC 33.5 G/DL (30.0-36.0); MCV 89.2 FL (83-99); PLATELET COUNT 231 K/uL (156-360); RBC DIS.WIDTH-CV 12.4 % (11.8-14.6); RBC DIS.WIDTH-SD 40.6 % (39-53); RED BLOOD COUNT 4.08 M/uL (3.80-5.20); WHITE BLOOD COUNT 8.3 K/uL (4.1-10.2)
[2017-06-17 06:35] LABS: HEMOGLOBIN 12.2 G/DL (11.9-15.5)
[2017-06-17 06:41] LABS: TROP-I INTERPRETATION NEGATIVE; TROPONIN-I < 0.01 ng/mL (0.0-0.30)
[2017-06-17 06:54] LABS: CHLORIDE 100 MEQ/L (99-109); CREATININE 1.2 MG/DL (0.6-1.3); GFR ESTIMATE (CALCULATED) 46 mL/min/; GLUCOSE 442 mg/dL (70-99); POTASSIUM 4.6 MEQ/L (3.7-5.4); SODIUM 129 MEQ/L (136-147); UREA NITROGEN (BUN) 30 mg/dL (9-23)
[2017-06-17 07:42] VITALS: BP 142/70
[2017-06-17 11:52] LABS: TROP-I INTERPRETATION NEGATIVE; TROPONIN-I < 0.01 ng/mL (0.0-0.30)
[2017-06-17 11:55] VITALS: BP 144/72
[2017-06-17 14:47] LABS: APPEARANCE CLEAR ((CLEAR)); BILIRUBIN NEGATIVE; BLOOD NEGATIVE; COLOR STRAW ((YELLOW)); KETONES 5; LEUKOCYTES NEGATIVE; NITRITE NEGATIVE; PROTEIN (STRIP) NEGATIVE; SPECIFIC GRAVITY 1.025 (1.000-1.030); UCUL ADDED? NO; UROBILINOGEN 0.2 MG/DL (0.2-1.0)
[2017-06-17 14:50] LABS: GLUCOSE (STRIP) 500
[2017-06-17 15:58] VITALS: BP 147/65
[2017-06-17 20:15] VITALS: BP 141/63
[2017-06-17 23:51] VITALS: BP 138/68; BP 141/63
[2017-06-18 04:15] VITALS: BP 123/60
[2017-06-18 06:31] LABS: CHLORIDE 107 MEQ/L (99-109); CREATININE 0.9 MG/DL (0.6-1.3); GFR ESTIMATE (CALCULATED) > 59 mL/min/; UREA NITROGEN (BUN) 19 mg/dL (9-23)
[2017-06-18 06:34] LABS: GLUCOSE 58 mg/dL (70-99); POTASSIUM 3.4 MEQ/L (3.7-5.4); SODIUM 138 MEQ/L (136-147)
[2017-06-18 08:38] VITALS: BP 118/63
[2017-06-18 11:46] VITALS: BP 139/63
[2017-06-18 15:53] VITALS: BP 106/57
[2017-06-18 19:20] VITALS: BP 124/58
[2017-06-18 22:56] VITALS: BP 136/63
[2017-06-19 03:20] VITALS: BP 132/63
[2017-06-19 07:25] VITALS: BP 149/67
[2017-06-19 12:03] VITALS: BP 163/71
[2017-06-19] MEDS ORDERED: LEVAQUIN750 MG PO (13:39)
[2017-06-19 16:23] VITALS: BP 116/56
== END 2017-06-19 17:24 | disposition home or self-care (01) | DRG 190 ==
LOC: EME 14:40 → 5EAST 20:36 → EDOF 20:36 → ENRESERV 20:41 → 5EAST 21:58
PROVIDERS: Emergency Medicine; Family Medicine; Hospitalist
DX: J44.1 Chronic obstructive pulmonary disease with (acute) exacerbation (principal); J44.0 Chronic obstructive pulmonary disease with (acute) lower respiratory infection; J18.9 Pneumonia, unspecified organism; E10.65 Type 1 diabetes mellitus with hyperglycemia; E87.2 Acidosis; E87.1 Hypo-osmolality and hyponatremia; E86.0 Dehydration; E10.649 Type 1 diabetes mellitus with hypoglycemia without coma; E10.51 Type 1 diabetes mellitus with diabetic peripheral angiopathy without gangrene; I10 Essential (primary) hypertension; J98.11 Atelectasis; K44.9 Diaphragmatic hernia without obstruction or gangrene; R06.03 Acute respiratory distress; F17.200 Nicotine dependence, unspecified, uncomplicated; Z96.641 Presence of right artificial hip joint; Z96.651 Presence of right artificial knee joint; Z79.4 Long term (current) use of insulin; Z85.3 Personal history of malignant neoplasm of breast; Z87.11 Personal history of peptic ulcer disease; Z92.3 Personal history of irradiation; Z92.21 Personal history of antineoplastic chemotherapy
CPT/HCPCS: 71046; 71250; 78582; 80048; 80053; 81003; 82948; 83605; 83735; 83880; 84439; 84443; 84484; 84999; 85025; 85027; 87040; 87070; 87205; 93005; 94640; 94640 76; 94760; 94799; 99202; A9540; A9567; J0692; J1650; J1815; J1956; J2920; J3370; J7040; J7050; J7120; J7512

== ENCOUNTER 2017-08-17 01:57 | Inpatient (IN) | payer OTHER ==
[~2017-08-17] VITALS: Ht 157.5 cm; Wt 67.9 kg
[2017-08-17] VITALS (9 sets, daily range): BP systolic 61–167; BP diastolic 42–97
[~2017-08-17 01:57] MED LIST changes: +LEVAQUIN750 MG PO
[2017-08-17 02:47] LABS: HEMATOCRIT 41.5 % (36.0-46.0); HEMOGLOBIN 13.2 G/DL (11.9-15.5); MCH 30.2 PG (29.0-34.0); MCHC 31.8 G/DL (30.0-36.0); PLATELET COUNT 276 K/uL (156-360); RBC DIS.WIDTH-CV 12.6 % (11.8-14.6); RBC DIS.WIDTH-SD 44.3 % (39-53); RED BLOOD COUNT 4.37 M/uL (3.80-5.20); WHITE BLOOD COUNT 15.5 K/uL (4.1-10.2)
[2017-08-17 02:51] LABS: CARBON DIOXIDE (BICARBONATE) 8.8 MEQ/L (20-31)
[2017-08-17 02:58] LABS: ALBUMIN 3.7 g/dL (3.2-4.8)
[2017-08-17 02:59] LABS: CHLORIDE 91 mEq/L (99-109); POTASSIUM 5.6 mEq/L (3.7-5.4); SODIUM 127 mEq/L (136-147)
[2017-08-17 03:01] LABS: TOTAL PROTEIN 6.4 g/dL (6.4-8.3)
[2017-08-17 03:03] LABS: TOTAL BILIRUBIN 0.5 mg/dL (0.0-1.0)
[2017-08-17 03:04] LABS: ALKALINE PHOSPHATASE 118 IU/L (3-129)
[2017-08-17 03:05] LABS: CREATININE 2.1 mg/dL (0.6-1.3); GFR ESTIMATE (CALCULATED) 24 mL/min/
[2017-08-17 03:06] LABS: AST (GOT) 15 IU/L (2-34); UREA NITROGEN (BUN) 34 mg/dL (9-23)
[2017-08-17 03:08] LABS: ALT (GPT) 15 IU/L (3-49); GLUCOSE 848 mg/dL (70-99); LIPASE 8 U/L (1.0-51.0); TROP-I INTERPRETATION NEGATIVE; TROPONIN-I < 0.01 ng/mL (0.0-0.30)
[2017-08-17 05:00] LABS: CHLORIDE 99 mEq/L (99-109); POTASSIUM 4.7 mEq/L (3.7-5.4); SODIUM 132 mEq/L (136-147)
[2017-08-17 05:06] LABS: CREATININE 1.9 mg/dL (0.6-1.3); GFR ESTIMATE (CALCULATED) 27 mL/min/; PHOSPHORUS 3.4 mg/dL (2.5-4.9)
[2017-08-17 05:07] LABS: UREA NITROGEN (BUN) 32 mg/dL (9-23)
[2017-08-17 05:16] LABS: GLUCOSE 640 mg/dL (70-99)
[2017-08-17 07:30] LABS: INTER. NORMALIZED RATIO 0.9
[2017-08-17 07:32] LABS: PTT 23.1 SEC (25-37)
[2017-08-17 08:00] LABS: COMMENTS - BLOOD GASES C+ DRAWN IN CATH LAB; DEVICE VENT; FI02 100 %
[2017-08-17 08:01] LABS: MECHANICAL RATE 20 resp/min; MODE AC; O2 SATURATION (CALCULATED) 99.6 % (95-99); PCO2 33 mm Hg (35-45); PEEP 5 CM/H20; PO2 584 mm Hg (80-100); TIDAL VOLUME 500 ML; pH 7.34 (7.35-7.45)
[2017-08-17 08:02] LABS: BASE EXCESS -7.1 mEq/L (-3 to +3); BICARBONATE 17.8 mEq/L (22-26); CARBOXY HGB 1.3 % (0-5); METHEMOGLOBIN 1.3 % (0-1.5)
[2017-08-17 08:04] LABS: CREATININE 1.7 mg/dL (0.6-1.3); GFR ESTIMATE (CALCULATED) 31 mL/min/; PHOSPHORUS 1.7 mg/dL (2.5-4.9)
[2017-08-17 08:05] LABS: TROP-I INTERPRETATION NEGATIVE; TROPONIN-I 0.01 ng/mL (0.0-0.30); UREA NITROGEN (BUN) 30 mg/dL (9-23)
[2017-08-17 08:12] LABS: GLUCOSE 419 mg/dL (70-99)
[2017-08-17 08:17] LABS: CHLORIDE 102 mEq/L (99-109); POTASSIUM 4.1 mEq/L (3.7-5.4); SODIUM 134 mEq/L (136-147)
[2017-08-17 11:10] LABS: HEMOGLOBIN A1c (GLYCOHEMOGLOB) 13.4 % (Below 5.7)
[2017-08-17 11:33] LABS: CHLORIDE 102 mEq/L (99-109); POTASSIUM 4.1 mEq/L (3.7-5.4); SODIUM 134 mEq/L (136-147)
[2017-08-17 11:35] LABS: GLUCOSE 248 mg/dL (70-99)
[2017-08-17 11:39] LABS: CREATININE 1.7 mg/dL (0.6-1.3); GFR ESTIMATE (CALCULATED) 31 mL/min/
[2017-08-17 11:40] LABS: UREA NITROGEN (BUN) 29 mg/dL (9-23)
[2017-08-17 11:48] LABS: APPEARANCE CLEAR ((CLEAR)); BILIRUBIN NEGATIVE; BLOOD LARGE; COLOR YELLOW ((YELLOW)); GLUCOSE (STRIP) >=500; KETONES 20; LEUKOCYTES NEGATIVE; NITRITE NEGATIVE; PROTEIN (STRIP) 100; UROBILINOGEN 0.2 MG/DL (0.2-1.0)
[2017-08-17 12:14] LABS: BACTERIA RARE /HPF; EPITHELIAL CELLS RARE /HPF; MUCUS TRACE /LPF; RED BLOOD CELLS 0-5 /HPF (0-5); UCUL ADDED? NO; WHITE BLOOD CELLS 0-5 /HPF (0-5)
[2017-08-17 12:19] LABS: SPECIFIC GRAVITY > 1.060 (1.000-1.030)
[2017-08-17 18:30] LABS: CHLORIDE 106 MEQ/L (99-109); POTASSIUM 4.5 MEQ/L (3.7-5.4); SODIUM 137 MEQ/L (136-147)
[2017-08-17 18:36] LABS: CREATININE 1.4 MG/DL (0.6-1.3); GFR ESTIMATE (CALCULATED) 39 mL/min/; PHOSPHORUS 4.3 mg/dL (2.5-4.9); UREA NITROGEN (BUN) 32 mg/dL (9-23)
[2017-08-17 18:37] LABS: GLUCOSE 100 mg/dL (70-99)
[2017-08-17 19:49] LABS: TROP-I INTERPRETATION POSITIVE; TROPONIN-I 516.98 ng/mL (0.0-0.30)
[2017-08-18] VITALS (7 sets, daily range): BP systolic 83–137; BP diastolic 47–72
[2017-08-18 00:50] LABS: CHLORIDE 106 mEq/L (99-109); SODIUM 136 mEq/L (136-147)
[2017-08-18 00:55] LABS: CREATININE 1.5 mg/dL (0.6-1.3); GFR ESTIMATE (CALCULATED) 36 mL/min/
[2017-08-18 00:56] LABS: UREA NITROGEN (BUN) 32 mg/dL (9-23)
[2017-08-18 01:00] LABS: TROP-I INTERPRETATION POSITIVE
[2017-08-18 01:08] LABS: GLUCOSE 292 mg/dL (70-99); PHOSPHORUS 4.3 mg/dL (2.5-4.9)
[2017-08-18 01:28] LABS: TROPONIN-I 429.07 ng/mL (0.0-0.30)
[2017-08-18 03:33] LABS: BASOPHIL (%) 0.2 % (0-1); EOSINOPHIL (%) 0 % (0-5); HEMATOCRIT 32.3 % (36.0-46.0); HEMOGLOBIN 11.6 G/DL (11.9-15.5); IMMATURE GRANULOCYTE (%) 0.5 % (0.0-0.7); LYMPHOCYTE (%) 14.8 % (15-42); MCHC 35.9 G/DL (30.0-36.0); MONOCYTE (%) 8.9 % (3-12); MONOCYTE COUNT 1.8 K/uL (0-0.8); NEUTROPHIL (%) 75.6 % (45-76); NEUTROPHIL COUNT 15.1 K/uL (1.8-6.4); PLATELET COUNT 195 K/uL (156-360); RBC DIS.WIDTH-CV 12.9 % (11.8-14.6); RBC DIS.WIDTH-SD 40.6 % (39-53); RED BLOOD COUNT 3.74 M/uL (3.80-5.20)
[2017-08-18 03:34] LABS: MCV 86.4 FL (83-99)
[2017-08-18 03:38] LABS: CHLORIDE 111 mEq/L (99-109); POTASSIUM 3.5 mEq/L (3.7-5.4); SODIUM 137 mEq/L (136-147)
[2017-08-18 03:40] LABS: GLUCOSE 216 mg/dL (70-99)
[2017-08-18 03:43] LABS: CREATININE 1.3 mg/dL (0.6-1.3); GFR ESTIMATE (CALCULATED) 42 mL/min/; PHOSPHORUS 2.9 mg/dL (2.5-4.9)
[2017-08-18 03:44] LABS: UREA NITROGEN (BUN) 29 mg/dL (9-23)
[2017-08-18 04:03] LABS: COMMENTS - BLOOD GASES RN DRAW; SITE A-LINE
[2017-08-18 04:04] LABS: BASE EXCESS -7.5 mEq/L (-3 to +3); BICARBONATE 17.3 mEq/L (22-26); CARBOXY HGB 1.3 % (0-5); DEVICE VENT; FI02 40 %; MECHANICAL RATE 16 resp/min; METHEMOGLOBIN 0.7 % (0-1.5); MODE AC; PCO2 32 mm Hg (35-45); PEEP 5 CM/H20; PO2 267 mm Hg (80-100); TIDAL VOLUME 400 ML; TOTAL RESP RATE 17 resp/min; pH 7.34 (7.35-7.45)
[2017-08-18 07:00] LABS: HEMOGLOBIN 11.7 G/DL (11.9-15.5); MCH 29.5 PG (29.0-34.0); MCHC 33.4 G/DL (30.0-36.0); MCV 88.2 FL (83-99); PLATELET COUNT 184 K/uL (156-360); RBC DIS.WIDTH-CV 13.1 % (11.8-14.6); RBC DIS.WIDTH-SD 42.4 % (39-53); RED BLOOD COUNT 3.97 M/uL (3.80-5.20); WHITE BLOOD COUNT 22.8 K/uL (4.1-10.2)
[2017-08-18 07:24] LABS: CHLORIDE 110 MEQ/L (99-109); CREATININE 1.3 MG/DL (0.6-1.3); GFR ESTIMATE (CALCULATED) 42 mL/min/; GLUCOSE 145 mg/dL (70-99); PHOSPHORUS 3.4 mg/dL (2.5-4.9); POTASSIUM 3.3 MEQ/L (3.7-5.4); SODIUM 140 MEQ/L (136-147); UREA NITROGEN (BUN) 28 mg/dL (9-23)
[2017-08-18 21:36] LABS: CHLORIDE 109 MEQ/L (99-109); GFR ESTIMATE (CALCULATED) 57 mL/min/; GLUCOSE 137 mg/dL (70-99); HIGH-SENS C-REACTIVE PROTEIN 1.44 MG/DL (0.02-0.20); MAGNESIUM 1.4 mg/dl (1.3-2.7); POTASSIUM 3.1 MEQ/L (3.7-5.4); SODIUM 141 MEQ/L (136-147); UREA NITROGEN (BUN) 21 mg/dL (9-23)
[2017-08-18 21:40] LABS: CARBOXY HGB 1.5 % (0-5); COMMENTS - BLOOD GASES C+NA; DEVICE VENT; FI02 40 %; MECHANICAL RATE 16 resp/min; MODE AC; O2 SATURATION (CALCULATED) 96.8 % (95-99); PCO2 27 mm Hg (35-45); PEEP 5 CM/H20; PO2 69 mm Hg (80-100); SITE RR; TIDAL VOLUME 400 ML; TOTAL RESP RATE 38 resp/min; pH 7.45 (7.35-7.45)
[2017-08-18 21:41] LABS: BASE EXCESS -4.2 mEq/L (-3 to +3); BICARBONATE 18.8 mEq/L (22-26)
[2017-08-18 21:43] LABS: PHOSPHORUS 2.2 mg/dL (2.5-4.9)
[2017-08-18 22:14] LABS: HEMATOCRIT 28.6 % (36.0-46.0); MCH 30.8 PG (29.0-34.0); RBC DIS.WIDTH-CV 13.3 % (11.8-14.6); RED BLOOD COUNT 3.25 M/uL (3.80-5.20); WHITE BLOOD COUNT 14.8 K/uL (4.1-10.2)
[2017-08-18 22:26] LABS: ALBUMIN 2.2 g/dL (3.2-4.8); CHLORIDE 109 mEq/L (99-109); POTASSIUM 2.6 mEq/L (3.7-5.4); SODIUM 142 mEq/L (136-147)
[2017-08-18 22:27] LABS: MAGNESIUM 1.6 mg/dL (1.3-2.7)
[2017-08-18 22:32] LABS: ALKALINE PHOSPHATASE 95 IU/L (3-129); GFR ESTIMATE (CALCULATED) 57 mL/min/
[2017-08-18 22:33] LABS: TROP-I INTERPRETATION POSITIVE; UREA NITROGEN (BUN) 19 mg/dL (9-23)
[2017-08-18 22:41] LABS: ALT (GPT) 139 IU/L (3-49); AST (GOT) 540 IU/L (2-34); GLUCOSE 208 mg/dL (70-99); PHOSPHORUS 1.8 mg/dL (2.5-4.9); TOTAL BILIRUBIN 0.2 mg/dL (0.0-1.0); TOTAL PROTEIN 3.8 g/dL (6.4-8.3)
[2017-08-18 22:46] LABS: PLAT.SUFFICIENCY DECREASED
[2017-08-18 22:47] LABS: PLATELET COUNT 117 K/uL (156-360)
[2017-08-18 22:51] LABS: TROPONIN-I 168.34 ng/mL (0.0-0.30)
[2017-08-19] VITALS: BP 135/73
[2017-08-19 04:00] VITALS: BP 109/52
[2017-08-19 07:12] LABS: BASOPHIL (%) 0.2 % (0-1); BASOPHIL COUNT 0.1 K/uL (0-0.1); EOSINOPHIL (%) 0 % (0-5); HEMATOCRIT 34.5 % (36.0-46.0); HEMOGLOBIN 11.3 G/DL (11.9-15.5); IMMATURE GRANULOCYTE (%) 0.8 % (0.0-0.7); LYMPHOCYTE (%) 14.5 % (15-42); LYMPHOCYTE COUNT 3.1 K/uL (1.0-2.8); MCH 29.7 PG (29.0-34.0); MCHC 32.8 G/DL (30.0-36.0); MCV 90.8 FL (83-99); MONOCYTE (%) 10.3 % (3-12); MONOCYTE COUNT 2.2 K/uL (0-0.8); NEUTROPHIL (%) 74.2 % (45-76); NEUTROPHIL COUNT 15.6 K/uL (1.8-6.4); PLATELET COUNT 119 K/uL (156-360); RBC DIS.WIDTH-CV 13.7 % (11.8-14.6); RBC DIS.WIDTH-SD 45.9 % (39-53)
[2017-08-19 07:44] LABS: ALBUMIN 2.4 G/DL (3.2-4.8); ALKALINE PHOSPHATASE 139 IU/L (3-129); ALT (GPT) 122 IU/L (3-49); AST (GOT) 420 IU/L (2-34); CHLORIDE 111 MEQ/L (99-109); GFR ESTIMATE (CALCULATED) 57 mL/min/; MAGNESIUM 1.6 mg/dl (1.3-2.7); SODIUM 138 MEQ/L (136-147); TOTAL BILIRUBIN 0.3 MG/DL (0.0-1.0); TOTAL PROTEIN 4.3 G/DL (6.4-8.3); UREA NITROGEN (BUN) 19 mg/dL (9-23)
[2017-08-19 07:45] LABS: GLUCOSE 116 mg/dL (70-99); PHOSPHORUS 3.4 mg/dL (2.5-4.9); POTASSIUM 4.6 MEQ/L (3.7-5.4)
[2017-08-19 08:00] VITALS: BP 111/49
[2017-08-19 12:00] VITALS: BP 117/55
[2017-08-19 15:00] LABS: CHLORIDE 112 mEq/L (99-109); MAGNESIUM 1.8 mg/dL (1.3-2.7); POTASSIUM 5.4 mEq/L (3.7-5.4); SODIUM 134 mEq/L (136-147)
[2017-08-19 15:06] LABS: GFR ESTIMATE (CALCULATED) 57 mL/min/; UREA NITROGEN (BUN) 16 mg/dL (9-23)
[2017-08-19 15:08] LABS: GLUCOSE 207 mg/dL (70-99); PHOSPHORUS 2.7 mg/dL (2.5-4.9)
== END 2017-08-19 17:06 | disposition short-term general hospital (02) | DRG 270 ==
LOC: EME → EDBD 01:57 → EME 01:57 → EDLOC 03:29 → 4WEST 03:29 → EDOF 03:29 → ENRESERV 03:58 → 4WEST 05:00 → ENRESERV 08:07 → 4WEST 08:24
PROVIDERS: Emergency Medicine; Internal Medicine; Internal Medicine Cardiovascular Disease; Obstetrics & Gynecology; Surgery
PROC: 4A023N7 Measurement of Cardiac Sampling and Pressure, Left Heart, Percutaneous Approach (ICD-10-PCS; principal; 2017-08-17)
PROC: 027035Z Dilation of Coronary Artery, One Artery with Two Drug-eluting Intraluminal Devices, Percutaneous Approach (ICD-10-PCS; principal; 2017-08-17)
PROC: B2111ZZ Fluoroscopy of Multiple Coronary Arteries using Low Osmolar Contrast (ICD-10-PCS; principal; 2017-08-17)
PROC: B2151ZZ Fluoroscopy of Left Heart using Low Osmolar Contrast (ICD-10-PCS; principal; 2017-08-17)
PROC: 0BH17EZ Insertion of Endotracheal Airway into Trachea, Via Natural or Artificial Opening (ICD-10-PCS; principal; 2017-08-17)
PROC: 5A02210 Assistance with Cardiac Output using Balloon Pump, Continuous (ICD-10-PCS; principal; 2017-08-17)
PROC: 5A1945Z Respiratory Ventilation, 24-96 Consecutive Hours (ICD-10-PCS; principal; 2017-08-17)
PROC: 02HV33Z Insertion of Infusion Device into Superior Vena Cava, Percutaneous Approach (ICD-10-PCS; principal; 2017-08-17)
PROC: 5A2204Z Restoration of Cardiac Rhythm, Single (ICD-10-PCS; 2017-08-18)
PROC: 5A12012 Performance of Cardiac Output, Single, Manual (ICD-10-PCS; 2017-08-18)
DX: I21.02 ST elevation (STEMI) myocardial infarction involving left anterior descending coronary artery (principal); I25.119 Atherosclerotic heart disease of native coronary artery with unspecified angina pectoris; R57.0 Cardiogenic shock; J96.00 Acute respiratory failure, unspecified whether with hypoxia or hypercapnia; I49.01 Ventricular fibrillation; I47.2 Ventricular tachycardia; I47.1 Supraventricular tachycardia; N17.9 Acute kidney failure, unspecified; E10.11 Type 1 diabetes mellitus with ketoacidosis with coma; E86.0 Dehydration; E87.6 Hypokalemia; E83.51 Hypocalcemia; E83.39 Other disorders of phosphorus metabolism; J44.9 Chronic obstructive pulmonary disease, unspecified; I10 Essential (primary) hypertension; D72.829 Elevated white blood cell count, unspecified; E89.0 Postprocedural hypothyroidism; F17.200 Nicotine dependence, unspecified, uncomplicated; Z85.3 Personal history of malignant neoplasm of breast; Z96.643 Presence of artificial hip joint, bilateral
CPT/HCPCS: 36600; 71045; 80048; 80048 91; 80053; 81003; 82330; 82803; 82948; 83036; 83605; 83690; 83735; 84100; 84145 90; 84484; 84999; 85025; 85027; 85347; 85610; 85730; 86141; 86850; 86900; 86901; 87070; 87086; 87205; 87641; 93005; 93306; 94002; 94003; 94799; 99281; 99285; C1725; C1751; C1760; C1769; C1874; C1887; C1894; J1200; J1644; J1720; J1815; J1956; J2260; J2405; J2704; J2765; J3010; J3246; J3370; J3475; J3480; J7030; J7050; P9045